=== PATIENT | female | born 1975 | race Caucasian/White ===

== ENCOUNTER → 2021-09-29 10:31 | Outpatient (BNVA) | payer SELFPAY | PROVIDERS: PCP Nurse Practitioner Family; Referring Provider Specialist; Visit Provider Physician Assistant | DX: M51.9 Unspecified thoracic, thoracolumbar and lumbosacral intervertebral disc disorder (principal); Z98.890 Other specified postprocedural states | CPT/HCPCS: 72072; 72110 ==

== ENCOUNTER → 2022-11-15 17:48 | Outpatient (BNVA) | payer OTHER, SELFPAY | PROVIDERS: PCP Nurse Practitioner Family; Visit Provider Nurse Practitioner | DX: J06.9 Acute upper respiratory infection, unspecified (principal) | CPT/HCPCS: 87426 ==

== ENCOUNTER 2022-12-22 14:36 | Emergency (ER) | payer OTHER, SELFPAY ==
[2022-12-22 14:38] VITALS: BP 211/123; PULSE 86; RESP 17; TEMP 36.8; O2SAT 97; BMI 46.0
--- NOTE | 2022-12-22 14:57 | W.ED.BACK ---
HPI - Back Pain/Injury General: Chief Complaint: Back Pain/Injury Stated Complaint: possible kidney issues Time Seen by Provider: 12/22/22 14:50 Source: patient Mode of arrival: ambulatory Limitations: no limitations History of Present Illness: Patient is a 47-year-old female presents to the ED today with a complaint of left greater than right kidney pain . Patient states she has had bilateral flank pain over the past several days. 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 Patient states she had a subjective fever several days ago but none since. She is reporting some urinary urgency and odor. She is not having any burning with urination. Has not noticed any hematuria or dark urine. Denies any recent injury or trauma to her back. She denies abdominal pain, nausea, vomiting, changes in bowel movement. Of note patient arrives very hypertensive with a BP of 211/123. She states her blood pressure is usually normal and this is very elevated for her. She does appear anxious. MD elicited complaint: back pain Pertinent past history: other (kidney transplant) Onset (ago): day(s) Timing: constant Severity: moderate Similar Symptoms Previously: Yes Location: left flank and right flank Radiation: none Exacerbating factors: none Relieving factors: none Associated symptoms: Reports urinary urgency; Deny abdominal pain, chills, dysuria, fatigue, fever(s), hematuria, nausea or vomiting Work related injury: No Review of Systems Const: Denies: fever(s), chills, body aches, fatigue or malaise Card: Denies: chest pain Resp: Denies: dyspnea GI: Denies: abdominal pain, nausea, vomiting or diarrhea : Reports: flank pain and urinary urgency; Denies: difficulty voiding, dysuria, urinary frequency, urinary hesitancy, dribbling, hematuria or pelvic pain Musc: Denies: neck pain, back pain, extremity pain or joint pain Skin/Breast: Denies: rash Neuro: Denies: headache(s), numbness in extremities, weakness in extremities or sensory changes PFS ED PFSH: Medical History Amyloidosis Chest pain Chronic pain disorder Fatigue Gastritis GERD (gastroesophageal reflux disease) Hypertension Iron deficiency anemia Lumbar disc disease Obesity, morbid Renal failure, chronic Sleep apnea Spinal cord stimulator status Vitamin D deficiency Surgical History H/O hernia repair H/O knee surgery History of cholecystectomy S/P insertion of spinal cord stimulator (02/26/16) 02/26/2016 Family History Father Hodgkin disease Mother Thyroid disorder Thyroid cancer Breast cancer Diabetes Other Hypertension Myocardial infarction Social History Smoking and tobacco status: never smoked Alcohol intake: never Substance/Drug Use: never Lives independently: Yes Household members: spouse Marital status: Current occupational status: employed Physical Exam Const: COMMON NORMALS: patient oriented x3, no limitations, alert and well nourished GENERAL APPEARANCE: cooperative, comfortable and anxious NUTRITIONAL APPEARANCE: obese ORIENTATION/CONSCIOUSNESS: Yes awake, Yes oriented to person, Yes oriented to place and Yes oriented to time Eye: COMMON NORMALS: no scleral icterus GENERAL EYE: appearance normal, both eyes and all related structures Neck/C-Spine: COMMON NORMALS: no JVD Resp: COMMON NORMALS: normal respiratory effort and clear to auscultation bilaterally AUSCULTATION: clear to auscultation bilaterally Cardio: COMMON NORMALS: no JVD, regular rate and regular rhythm RATE: regular rate RHYTHM: regular rhythm GI: COMMON NORMALS: Normal to inspection, nondistended, normoactive bowel sounds present, Soft to palpation, non-tender, No hepatosplenomegaly present and no masses INSPECTION: Yes normal to inspection PALPATION: Yes Soft to palpation and Yes No hepatosplenomegaly present : BLADDER/KIDNEY EXAM: Yes CVA tenderness on the left Back/Pelvis: COMMON NORMALS: thoracic and lumbar spine normal to inspection and thoraco-lumbar ROM normal GENERAL BACK: Yes CVA tenderness LUMBAR SPINE/LOWER BACK: Yes lumbar spinal tenderness (reports this is fairly normal for patient) Extremity: COMMON NORMALS: normal to inspection, no clubbing, cyanosis or edema, no calf tenderness and no pedal edema GENERAL: Yes normal exam except as noted Neuro: KARLEE COMA SCALE: document GCS findings [place] coma scale eye opening: Spontaneous [place] coma scale verbal response: Orientated [place] coma scale motor response: Obey commands Karlee coma scale total score: 15 COMMON NORMALS: patient oriented x3, moves all extremities, no focal motor deficits, no sensory deficits noted and gait normal SENSORIUM/ORIENTATION: Yes alert, Yes oriented to person, Yes oriented to place and Yes oriented to time Skin: COMMON NORMALS: no rashes or lesions noted GENERAL SKIN EXAM: no rashes or lesions noted Course Vital Signs: Vital signs: Vital Signs Temperature 98.3 F 12/22/22 14:38 Pulse Rate 68 12/22/22 16:13 Respiratory Rate 17 12/22/22 14:38 Blood Pressure 164/97 12/22/22 16:13 Pulse Oximetry 99 12/22/22 16:13 Oxygen Delivery Me thod Room Air 12/22/22 16:13 MDM - Back Pain/Injury Medical Decision Making Clinically appears in no acute distress. She has complaints of bilateral left greater than right flank pain as well as some urinary urgency and odorous urine. She is not tachycardic or febrile. She does arrive significantly hypertensive. Patient states her blood pressure is normally controlled at home. She has taken her blood pressure medication today. Blood work showing a normal white count. Her creatinine is 1.0. UA with evidence of infection with 2+ leuks, 5-10 WBCs and 1+ bacteria. She has no proteinuria. Spoke to Dr. Sheridan in regards to treatment given her kidney transplant status. Decision was made to place her on Cipro. She has follow up with her cannery tender engineer in two days. Return to ED precautions given. Labs 12/22/22 15:04 12/22/22 15:26 Laboratory Results WBC 9.01 10^3/uL (3.29-11.43) 12/22/22 15:04 RBC 5.33 10^6/uL (3.85-5.65) 12/22/22 15:04 Hgb 14.60 g/dL (11.27-16.99) 12/22/22 15:04 Hct 44.5 % (36-47) 12/22/22 15:04 MCV 83.5 fl (85-98) L 12/22/22 15:04 MCH 27.4 pg (27-33) 12/22/22 15:04 MCHC 32.8 g/dL (30-55) 12/22/22 15:04 RDW 12.8 % (12.1-15.1) 12/22/22 15:04 Plt Count 255 10^3/cmm (157-399) 12/22/22 15:04 MPV 11.8 fL (7.4-10.4) H 12/22/22 15:04 Neut % (Auto) 58.4 % 12/22/22 15:04 Lymph % (Auto) 30.1 % 12/22/22 15:04 [place] % (Auto) 6.5 % 12/22/22 15:04 Eos % (Auto) 3.4 % 12/22/22 15:04 Baso % (Auto) 0.9 % 12/22/22 15:04 Neut # (Auto) 5.26 10^3/uL (1.8-7.7) 12/22/22 15:04 Lymph # (Auto) 2.7 10^3/uL (0.8-4.8) 12/22/22 15:04 [place] # (Auto) 0.6 10^3/uL (0.2-0.9) 12/22/22 15:04 Eos # (Auto) 0.3 10^3/uL (0.0-0.8) 12/22/22 15:04 Baso # (Auto) 0.1 10^3/uL (0.0-0.1) 12/22/22 15:04 Nucleated RBC % (auto) 0 % 12/22/22 15:04 Nucleated RBCs # 0.0 /100WBC 12/22/22 15:04 Sodium 139 mmol/L (136-145) 12/22/22 15:26 Potassium 4.2 mmol/L (3.5-5.1) 12/22/22 15:26 Chloride 104 mmol/L (98-107) 12/22/22 15:26 Carbon Dioxide 25 mmol/L (22-29) 12/22/22 15:26 Anion Gap 14.2 (5-19) 12/22/22 15:26 BUN 12 mg/dL (6-20) 12/22/22 15:26 Creatinine 1.0 mg/dL (0.5-0.9) H 12/22/22 15:26 GFR Calculation 59.7 mL/min (90-130) L 12/22/22 15:26 Glucose 124 mg/dL (65-115) H 12/22/22 15:26 Calculated Osmolality 289 mOsm/kg (285-295) 12/22/22 15:26 Calcium 9.1 mg/dL (8.5-10.5) 12/22/22 15: Total Bilirubin 0.3 mg/dL (0.15-1.2) 12/22/22 15: AST 21 U/L (0-32) 12/22/22 15:26 ALT 13 U/L (0-33) 12/22/22 15:26 Alkaline Phosphatase 89 U/L (35-105) 12/22/22 15:26 Total Protein 6.7 g/dL (6.6-8.7) 12/22/22 15: Albumin 4.1 g/dL (3.5-5.2) 12/22/22 15: Globulin 2.6 g/dL (1.3-4.6) 12/22/22 15:26 HCG, Qual Negative (Negative) 12/22/22 15:26 Urine Color Yellow (Yellow) 12/22/22 14:52 Urine Appearance Sl hazy (CLEAR) A 12/22/22 14:52 Urine pH 6 (5-7) 12/22/22 14:52 Ur Specific [place]en 1.015 (1.005-1.030) 12/22/22 14:52 Urine Protein Neg (Negative) 12/22/22 14:52 Urine Glucose (UA) Norm (Normal) 12/22/22 14:52 Urine Ketones Negative (Negative) 12/22/22 14:52 Urine Blood Neg (Negative) 12/22/22 14:52 Urine Nitrate Negative (Negative) 12/22/22 14:52 Urine Bilirubin Neg (Negative) 12/22/22 14:52 Urine Urobilinogen Norm mg/dL (Negative) 12/22/22 14:52 Ur Leukocyte Esterase 2+ (Negative) H 12/22/22 14:52 Urine RBC 0-4 /hpf (0-2) H 12/22/22 14:52 Urine WBC 5-10 /hpf (0-5) H 12/22/22 14:52 Ur Squamous Epith Cells 0-4 /hpf (0-5) H 12/22/22 14:52 Ur Transition Epith Cell 0-4 /hpf 12/22/22 14:52 Amorphous Sediment Not Reportable 12/22/22 14:52 Urine Bacteria 1+ /hpf (NONE) H 12/22/22 14:52 Urine Mucus None /hpf 12/22/22 14:52 No radiology studies performed this visit Discharge Plan Discharge Patient Disposition: Home Clinical Impression: Cystitis Condition: Stable Prescriptions: New Cipro 500 mg tablet 500 mg PO Q12H Qty: 14 0RF No Action losartan [Cozaar] 25 mg tablet 25 mg PO DAILY magnesium oxide 500 mg capsule 500 mg PO DAILY mycophenolate mofetil [CellCept] 500 mg tablet 500 mg PO BID tacrolimus [Prograf] 1 mg capsule 1 mg PO Q12H allopurinol 100 mg tablet 100 mg PO DAILY Women's Multivitamin 18 mg iron-400 mcg-500 mg Tablet 1 tab PO DAILY Discharge Orders: Discharge ED (Routine); Ordered 12/22/22 Ordered By: Umm Serrano Referrals: Ruthy Sanderson FNP [Primary Care Provider] - Activity Restrictions/Additional Instructions: We discussed please follow-up with your cannery tender engineer on Tuesday as scheduled. You need to return to the emergency department for worsening UTI-like symptoms, severe flank pain, repetitive episodes of vomiting, fevers, inability to hold down your antibiotics, or any other concerns you may have. As we discussed you need to keep a blood pressure log and follow-up with your cannery tender engineer. Coding Level of Care Code ED Screening Unit Registered Nurse for Yoly Skinner
[2022-12-22 15:00] VITALS: BP 201/110; PULSE 71; O2SAT 97
[2022-12-22 15:13] LABS: Basophils # 0.1 10^3/uL (0.0-0.1); Basophils % 0.9 %; Eosinophils # 0.3 10^3/uL (0.0-0.8); Eosinophils % 3.4 %; Hematocrit 44.5 % (36-47); Lymphocytes # 2.7 10^3/uL (0.8-4.8); Lymphocytes % 30.1 %; Mean Corpuscular HGB Conc 32.8 g/dL (30-55); Mean Corpuscular Hemoglobin 27.4 pg (27-33); Mean Corpuscular Volume 83.5 fl (85-98); Mean Platelet Volume 11.8 fL (7.4-10.4); Monocytes # 0.6 10^3/uL (0.2-0.9); Monocytes % 6.5 %; Neutrophils # 5.26 10^3/uL (1.8-7.7); Neutrophils % 58.4 %; Nucleated Red Blood Cells % 0 %; Platelet Count 255 10^3/cmm (157-399); Red Blood Count 5.33 10^6/uL (3.85-5.65); Red Cell Distribution Width 12.8 % (12.1-15.1); White Blood Count 9.01 10^3/uL (3.29-11.43)
[2022-12-22] MEDS: labetalol 5 mg/mL SDV 20mL 10 MG IVP ×2 (15:19→16:11)
[2022-12-22 15:23] VITALS: BP 173/100; PULSE 73; O2SAT 97
[2022-12-22 15:44] LABS: Add Urine Microscopic? YES; Bilirubin Urine Neg (Negative); Blood Urine Neg (Negative); Glucose Urine UA Norm (Normal); Ketones Urine Negative (Negative); Leukocyte Esterase Urine 2+ (Negative); Nitrate Urine Negative (Negative); Protein Urine Neg (Negative); Specific Gravity, Urine 1.015 (1.005-1.030); Urine Appearance SL Hazy (CLEAR); Urine Color Yellow (Yellow); Urobilinogen Urine Norm (Negative); pH Urine 6 (5-7)
[2022-12-22 15:50] LABS: Bacteria Urine 1+ /hpf; RBC Urine 0-4 /hpf (0-2); Squamous Epithelial Cell Urine 0-4 /hpf (0-5); Transitional Epi Cells Urine 0-4 /hpf
[2022-12-22 15:51] LABS: Add Urine Culture? No
[2022-12-22 15:52] LABS: Alanine Aminotransferase 13 U/L (0-33); Albumin Level 4.1 g/dL (3.5-5.2); Alkaline Phosphatase 89 U/L (35-105); Anion Gap 14.2 (5-19); Aspartate Amino Transferase 21 U/L (0-32); Blood Urea Nitrogen 12 mg/dL (6-20); Calcium 9.1 mg/dL (8.5-10.5); Carbon Dioxide 25 mmol/L (22-29); Chloride 104 mmol/L (98-107); Globulin 2.6 g/dL (1.3-4.6); Glomerular Filtration Rate 59.7 mL/min (90-130); Glucose 124 mg/dL (65-115); Osmolality Calculated 289 mOsm/kg (285-295); Potassium 4.2 mmol/L (3.5-5.1); Sodium 139 mmol/L (136-145); Total Bilirubin 0.3 mg/dL (0.15-1.2); Total Protein 6.7 g/dL (6.6-8.7)
[2022-12-22 15:53] LABS: HCG, Serum Qual Negative (Negative)
[2022-12-22 16:13] VITALS: BP 164/97; PULSE 68; O2SAT 99
[2022-12-22 16:30] VITALS: BP 152/101; PULSE 66; O2SAT 98
[2022-12-22] MEDS: ciprofloxacin 400 MG/200 ML PREMIX 200 MG IV (16:43)
[2022-12-22 17:30] VITALS: BP 148/103; PULSE 66; O2SAT 97
== END 2022-12-22 18:22 | disposition home or self-care (01) ==
PROVIDERS: Emergency Provider Physician Assistant; PCP Nurse Practitioner Family
DX: N30.90 Cystitis, unspecified without hematuria (principal); Z94.0 Kidney transplant status; I10 Essential (primary) hypertension
CPT/HCPCS: 80053; 81001; 84703; 85025; 96374; 96375; 96376; 99284; J0744; J3490

== ENCOUNTER → 2023-09-15 09:01 | Outpatient (BNVA) | payer OTHER, SELFPAY | PROVIDERS: PCP Nurse Practitioner Family; Visit Provider Obstetrics & Gynecology | DX: N91.2 Amenorrhea, unspecified (principal); N95.1 Menopausal and female climacteric states; Z98.890 Other specified postprocedural states | CPT/HCPCS: 83001; 84146; 84443; 84702 ==

== ENCOUNTER → 2023-09-29 08:35 | Outpatient (BNVA) | payer OTHER, SELFPAY | PROVIDERS: PCP Nurse Practitioner Family; Visit Provider Obstetrics & Gynecology | DX: D25.9 Leiomyoma of uterus, unspecified (principal) | CPT/HCPCS: 76830 ==

== ENCOUNTER 2023-12-22 09:40 | Outpatient (CLI) | payer BC, SELFPAY ==
--- NOTE | 2023-12-22 09:40 | MM_ITS ---
WS: [id number] BILATERAL SCREENING DIGITAL TOMOSYNTHESIS MAMMOGRAM WITH CAD HISTORY: SCREENING COMPARISON: 09/02/2014 Bilateral CC and MLO views with tomosynthesis and synthetic mammography submitted. Computer aided det ection analyzed. Breast composition: The breasts are almost entirely fatty. No suspicious masses, microcalcifications or architectural distortion. Surgical clips noted at 12:00 LEFT breast in the anterior position. Ther e are several oil cysts scattered throughout the LEFT breast. No suspicious mass. Previously describe d mass seen in 2014 is no longer present and was likely surgically excised. MM/MM scr BI tomosynthesis [id number] IMPRESSION: BI-RADS: 2 - Benign. FOLLOW UP: 1 Year Follow-up
== END 2023-12-22 09:41 | disposition home or self-care (01) ==
PROVIDERS: PCP Obstetrics & Gynecology; Visit Provider Obstetrics & Gynecology
DX: Z12.31 Encounter for screening mammogram for malignant neoplasm of breast (principal); R92.313 Mammographic fatty tissue density, bilateral breasts; N60.02 Solitary cyst of left breast
CPT/HCPCS: 77063; 77067

== ENCOUNTER → 2024-02-13 08:05 | Outpatient (BNVA) | payer BC, SELFPAY | PROVIDERS: PCP Obstetrics & Gynecology; Visit Provider Obstetrics & Gynecology | DX: D25.9 Leiomyoma of uterus, unspecified (principal); N84.0 Polyp of corpus uteri | CPT/HCPCS: 76830 ==

== ENCOUNTER 2024-03-16 06:57 | Outpatient (CLI) | payer BC, SELFPAY ==
--- NOTE | 2024-03-16 07:00 | CT_ITS ---
WS: [id number] CT LEFT FOOT, NONCONTRAST HISTORY: eval for fractures, lisfranc for surgical planning Technique: All CT scans at [facility] use at least one of these dose optimization techniques: automated exposure control; mA and/or kV adjustment per patient size (includes targeted exams where dose is matched to clinical indication); or iterative reconstruction. DLP: 127.28 mGy.cm COMPARISON: Radiograph 02/29/2024 Second metatarsal: Nondisplaced transverse fracture involving the metaphysis. No displacement. Third metatarsal: Nondisplaced transverse fracture proximal metatarsal nondisplaced and slightly comm inuted. There is a small bony fragment between the proximal second and third metatarsal. Medial cuneiform: Small avulsion fracture from the dorsal surface. Intermediate cuneiform: No definite fracture. Lateral cuneiform: Nondisplaced small avulsion type fractures along the plantar surface. Cuboid: Small cortical avulsion fractures from the dorsal surface. Navicular: Cortical irregularity along the dorsal surface. No definite fracture. Talus: No fracture. Calcaneus: No fracture. Elongation of the anterior calcaneal process. No osseous fusion. Distal tibia and fibula are intact. No widening of the syndesmosis. There is a very tiny age-indeterm inate avulsion fracture between the distal tibia and fibula. This is well-corticated and probably not acute. No additional fracture enthesopathy at the Achilles tendon attachment. No significant widening betwee n the first and second metatarsals on this nonweightbearing exam. CT/CT foot LT wo con* [id number] IMPRESSION: 1. Nondisplaced transverse fractures involving the proximal second and third m etatarsals. There is a small bony fragment between the proximal second and thir d metatarsals. 2. Small avulsion fractures from the medial and lateral cuneiforms and the cub oid as described above. No significant displacement.
== END 2024-03-16 06:58 | disposition home or self-care (01) ==
LOC: RAD 06:58
PROVIDERS: PCP Nurse Practitioner Family; Visit Provider Podiatrist Foot & Ankle Surgery
DX: S92.324A Nondisplaced fracture of second metatarsal bone, right foot, initial encounter for closed fracture (principal); S92.335A Nondisplaced fracture of third metatarsal bone, left foot, initial encounter for closed fracture; S92.242A Displaced fracture of medial cuneiform of left foot, initial encounter for closed fracture; S92.222A Displaced fracture of lateral cuneiform of left foot, initial encounter for closed fracture; S92.212A Displaced fracture of cuboid bone of left foot, initial encounter for closed fracture; S99.922A Unspecified injury of left foot, initial encounter; X58.XXXA Exposure to other specified factors, initial encounter
CPT/HCPCS: 73700

== ENCOUNTER → 2024-04-16 08:23 | Outpatient (BNVA) | payer BC, SELFPAY | PROVIDERS: PCP Nurse Practitioner Family; Visit Provider Podiatrist Foot & Ankle Surgery | DX: S92.314A Nondisplaced fracture of first metatarsal bone, right foot, initial encounter for closed fracture (principal); S92.325A Nondisplaced fracture of second metatarsal bone, left foot, initial encounter for closed fracture; S92.335A Nondisplaced fracture of third metatarsal bone, left foot, initial encounter for closed fracture; S92.215A Nondisplaced fracture of cuboid bone of left foot, initial encounter for closed fracture; W19.XXXA Unspecified fall, initial encounter | CPT/HCPCS: 73630 ==

== ENCOUNTER → 2024-05-14 07:47 | Outpatient (BNVA) | payer BC, SELFPAY | PROVIDERS: PCP Nurse Practitioner Family; Visit Provider Podiatrist Foot & Ankle Surgery | DX: S92.314D Nondisplaced fracture of first metatarsal bone, right foot, subsequent encounter for fracture with routine healing (principal); S92.322D Displaced fracture of second metatarsal bone, left foot, subsequent encounter for fracture with routine healing; S92.332D Displaced fracture of third metatarsal bone, left foot, subsequent encounter for fracture with routine healing; S92.215D Nondisplaced fracture of cuboid bone of left foot, subsequent encounter for fracture with routine healing; S92.325D Nondisplaced fracture of second metatarsal bone, left foot, subsequent encounter for fracture with routine healing; S92.335D Nondisplaced fracture of third metatarsal bone, left foot, subsequent encounter for fracture with routine healing; S99.922D Unspecified injury of left foot, subsequent encounter; W19.XXXD Unspecified fall, subsequent encounter | CPT/HCPCS: 73630 ==

== ENCOUNTER → 2024-07-18 10:11 | Outpatient (BNVA) | payer BC, SELFPAY | PROVIDERS: PCP Nurse Practitioner Family; Visit Provider Nurse Practitioner Women's Health | DX: R93.89 Abnormal findings on diagnostic imaging of other specified body structures (principal) | CPT/HCPCS: 76830 ==

== ENCOUNTER → 2024-08-20 13:43 | Outpatient (BNVA) | payer BC, SELFPAY | PROVIDERS: PCP Nurse Practitioner Family; Visit Provider Nurse Practitioner Women's Health | DX: E28.39 Other primary ovarian failure (principal) | CPT/HCPCS: 82670 ==

== ENCOUNTER → 2024-08-27 07:40 | Outpatient (BNVA) | payer BC, SELFPAY | PROVIDERS: PCP Nurse Practitioner Family; Visit Provider Podiatrist Foot & Ankle Surgery | DX: S92.314D Nondisplaced fracture of first metatarsal bone, right foot, subsequent encounter for fracture with routine healing (principal); S92.325D Nondisplaced fracture of second metatarsal bone, left foot, subsequent encounter for fracture with routine healing; S92.335D Nondisplaced fracture of third metatarsal bone, left foot, subsequent encounter for fracture with routine healing; S92.215D Nondisplaced fracture of cuboid bone of left foot, subsequent encounter for fracture with routine healing; W19.XXXD Unspecified fall, subsequent encounter; M76.72 Peroneal tendinitis, left leg | CPT/HCPCS: 73630 ==

== ENCOUNTER 2024-08-30 14:25 | Outpatient (CLI) | payer BC, SELFPAY ==
--- NOTE | 2024-08-30 14:30 | XR_ITS ---
WS: [id number] SCREENING DEXA SCAN Lat49 CLINICAL INFORMATION: E28.39 - Other primary ovarian failure COMPARISON: None. FINDINGS: The LEFT forearm bone mineral density measures 0.396. This corresponds to a T score score of -1.5 and Z score of -1.5. Left femoral neck bone mineral density measures 0.994 g/cm2. This corresponds to a T score of -0.1 and Z score of -0.5. Right femoral neck bone mineral density measures 0.947 g/cm2. This corresponds to a T score -0.5of and Z score of -0.9. Mean femoral neck bone mineral density measures 0.970 g/cm2. This corresponds to a T score of -0.3 and Z score of -0.7. XR/XR DEXA axial skeleton* [id number] IMPRESSION: Osteopenia LEFT forearm. Normal bone mineralization femoral necks. Patient's FRAX calculated 10 year probability for major osteoporotic fracture i s 3.2% and osteoporotic hip fracture is 0.2%.
== END 2024-08-30 14:26 | disposition home or self-care (01) ==
PROVIDERS: PCP Nurse Practitioner Family; Visit Provider Nurse Practitioner Women's Health
DX: E28.39 Other primary ovarian failure (principal); Z79.899 Other long term (current) drug therapy; M85.832 Other specified disorders of bone density and structure, left forearm
CPT/HCPCS: 77080

== ENCOUNTER → 2024-11-21 08:47 | Outpatient (BNVA) | payer BC, SELFPAY | PROVIDERS: PCP Nurse Practitioner Family; Visit Provider Obstetrics & Gynecology | DX: N84.0 Polyp of corpus uteri (principal); D25.0 Submucous leiomyoma of uterus | CPT/HCPCS: 76830 ==